=== PATIENT | female | born 1985 | race African-American/Black ===

== ENCOUNTER 2016-02-09 10:23 | Emergency (ER) | payer OTHER ==
[~2016-02-09] VITALS: Ht 165.1 cm; Wt 81.7 kg
[~2016-02-09 10:23] MED LIST: PERCOCET 5-3251 EACH PO
[2016-02-09 10:25] VITALS: BP 115/86
== END 2016-02-09 12:00 | disposition left against medical advice (07) ==
LOC: ER 10:23
DX: S09.90XA Unspecified injury of head, initial encounter (principal); W22.01XA Walked into wall, initial encounter; Y93.89 Activity, other specified; Y92.89 Other specified places as the place of occurrence of the external cause; Y99.9 Unspecified external cause status